=== PATIENT | male | born 1960 | race Caucasian/White ===

== ENCOUNTER 2020-11-06 12:09 | Emergency (ER) | payer OTHER ==
--- NOTE | 2020-11-06 12:54 | RAD REPORT ---
EXAM DESCRIPTION: RAD - Chest Single View - 11/06/2020 12:46 pm CLINICAL HISTORY: COUGH Chest pain. COMPARISON: No comparisons FINDINGS: Portable technique limits examination quality. The lungs are grossly clear. The heart is normal in size. No displaced fractures. IMPRESSION: No acute intrathoracic process suspected.
[2020-11-06 14:06] LABS: SARS-COV-2 RT PCR POSITIVE (NEGATIVE)
--- NOTE | 2020-11-06 14:06 | ER ---
Nurse's Notes [facility] Name: Simone Mcintyre Age: 60 yrs Sex: Male : 1960 Arrival Date: 11/06/2020 Time: 12:15 Bed 4 Private MD: Diagnosis: Coronavirus infection, unspecified Presentation: 11/06 12:30 Chief complaint: Patient states: Cough, fever, SOB with exertion for 5 days. Subjective ll1 fever. Coronavirus screen: Client denies travel out of the [place] in the last 14 days. cough unrelated to allergies, fever, shortness of breath, Client presents with at least one sign or symptom that may indicate coronavirus-19. Standard/surgical mask placed on the client. Ebola Screen: Patient denies travel to an Ebola-affected area in the 21 days before illness onset. Initial Sepsis Screen: Does the patient meet any 2 criteria? No. Patient's initial sepsis screen is negative. Does the patient have a suspected source of infection? Yes: Productive cough/pneumonia. Risk Assessment: Do you want to hurt yourself or someone else? Patient reports no desire to harm self or others. Onset of symptoms was November 02, 2020. 12:30 Method Of Arrival: Ambulatory ll1 12:30 Acuity: CELINE 3 ll1 Historical: - Allergies: 12:30 No Known Allergies; ll1 - PMHx: 12:30 Hypertension; ll1 - PSHx: 12:30 None; ll1 - Immunization history:: Flu vaccine is not up to date. - Social history:: Smoking status: Patient denies any tobacco usage or history of. Screenin:34 Abuse screen: Denies threats or abuse. Denies injuries from another. Nutritional sv screening: No deficits noted. Tuberculosis screening: No symptoms or risk factors identified. Fall Risk None identified. Assessment: 12:45 General: Appears in no apparent distress. comfortable, well developed, Behavior is sv calm, cooperative, appropriate for age. General: Reports fever. Pain: Denies pain. Neuro: Level of Consciousness is awake, alert, obeys commands, Oriented to person, place, time, situation, Moves all extremities. Full function Gait is steady, Speech is normal. Respiratory: Reports cough that is persistent Airway is patent Respiratory effort is even, unlabored, Respiratory pattern is regular, symmetrical. Respiratory: Reports shortness of breath. Derm: Skin is pink, warm \\T\\ dry. Musculoskeletal: Range of motion: intact in all extremities. 14:14 Reassessment: Patient appears in no apparent distress at this time. No changes from sv previously documented assessment. Patient and/or family updated on plan of care and expected duration. Pain level reassessed. Patient is alert, oriented x 3, equal unlabored respirations, skin warm/dry/pink. Vital Signs: 12:30 BP 167 / 92; Pulse 89; Resp 17; Temp 99.1; Pulse Ox 96% on R/A; Weight 79.38 kg; Height ll1 5 ft. 6 in. (167.64 cm); Pain 0/10; 12:30 Body Mass Index 28.25 (79.38 kg, 167.64 cm) ll1 ED Course: 12:15 Patient arrived in ED. mr 12:29 Arm band placed on. ll1 12:33 Triage completed. ll1 12:34 Mirna Baker, RN is Primary Nurse. sv 12:34 Patient has correct armband on for positive identification. Bed in low position. Call sv light in reach. Door closed. Head of bed elevated. 12:35 [facility] Sant[facility]C [facility]. kb 12:35 James Elena MD is Attending Physician. kb 12:40 Chest Single View XRAY Sent. sv 12:40 X-ray(s) taken. sv 12:45 Chest Single View XRAY In Process Unspecified. EDMS 12:50 COVID swab sent to lab. Flu and/or RSV swab sent to lab. sv 12:53 COVID-19 : Document "Date of Symptom Onset" if Symptomatic. Sent. sv 12:54 Flu Sent. sv 13:09 Awaiting lab results. sv 14:14 No provider procedures requiring assistance completed. Patient did not have IV access sv during this emergency room visit. Administered Medications: No medications were administered Outcome: 14:06 Discharge ordered by . kb 14:14 Patient left the ED. sv 14:14 Discharged to home ambulatory. sv 14:14 Condition: stable 14:14 Discharge instructions given to patient, Instructed on discharge instructions, follow up and referral plans. Demonstrated understanding of instructions, follow-up care. Signatures: Dispatcher [employer] EDMS Dione Santana FNP-C ASSISTANT [employer]ER-Mirna Sen, RN RN sv Trae, Chrissy mr Kishore, Rissa, RN RN ll1
--- NOTE | 2020-11-06 14:07 | EDPHYS ---
Physician Documentation [facility] Name: Simone Mcintyre Age: 60 yrs Sex: Male : 1960 Arrival Date: 11/06/2020 Time: 12:15 Bed 4 Private MD: ED Physician James Elena HPI: 11/06 13:29 This 60 yrs old Male presents to ER via Ambulatory with complaints of Cough, kb Fever. 13:29 The patient or guardian reports cough, that is intermittent, described as mild, with no kb sputum, difficulty breathing, flu symptoms, low-grade fever, myalgias. Onset: The symptoms/episode began/occurred 5 day(s) ago. Severity of symptoms: At their worst the symptoms were mild, in the emergency department the symptoms are unchanged. Modifying factors: The symptoms are alleviated by nothing, the symptoms are aggravated by nothing. Associated signs and symptoms: Pertinent positives: fever, rhinorrhea. The patient has not experienced similar symptoms in the past. The patient has not recently seen a physician. Pt reports cough and fever for 5 days. States he had shortness of breath after climbing stairs at work. Started feeling better yesterday, but woke up with the cough again. . Historical: - Allergies: 12:30 No Known Allergies; ll1 - PMHx: 12:30 Hypertension; ll1 - PSHx: 12:30 None; ll1 - Immunization history:: Flu vaccine is not up to date. - Social history:: Smoking status: Patient denies any tobacco usage or history of. ROS: 13:28 Cardiovascular: Negative for chest pain, palpitations, and edema, Abdomen/GI: Negative kb for abdominal pain, nausea, vomiting, diarrhea, and constipation, MS/Extremity: Negative for injury and deformity, Skin: Negative for injury, rash, and discoloration, Neuro: Negative for headache, weakness, numbness, tingling, and seizure. 13:28 Constitutional: Positive for fatigue, fever, malaise. 13:28 Respiratory: Positive for cough, dyspnea on exertion, Negative for hemoptysis, orthopnea, pleurisy, shortness of breath, sputum production, wheezing. Exam: 13:29 Constitutional: This is a well developed, well nourished patient who is awake, alert, kb and in no acute distress. Head/Face: Normocephalic, atraumatic. Chest/axilla: Normal chest wall appearance and motion. Nontender with no deformity. No lesions are appreciated. Cardiovascular: Regular rate and rhythm with a normal S1 and S2. No gallops, murmurs, or rubs. Normal PMI, no JVD. No pulse deficits. Respiratory: Lungs have equal breath sounds bilaterally, clear to auscultation and percussion. No rales, rhonchi or wheezes noted. No increased work of breathing, no retractions or nasal flaring. Abdomen/GI: Soft, non-tender, with normal bowel sounds. No distension or tympany. No guarding or rebound. No evidence of tenderness throughout. Skin: Warm, dry with normal turgor. Normal color with no rashes, no lesions, and no evidence of cellulitis. MS/ Extremity: Pulses equal, no cyanosis. Neurovascular intact. Full, normal range of motion. Neuro: Awake and alert, GCS 15, oriented to person, place, time, and situation. Cranial nerves II-XII grossly intact. Motor strength 5/5 in all extremities. Sensory grossly intact. Cerebellar exam normal. Normal gait. Vital Signs: 12:30 BP 167 / 92; Pulse 89; Resp 17; Temp 99.1; Pulse Ox 96% on R/A; Weight 79.38 kg; Height ll1 5 ft. 6 in. (167.64 cm); Pain 0/10; 12:30 Body Mass Index 28.25 (79.38 kg, 167.64 cm) ll1 MDM: 12:35 Patient medically screened. 13:29 Data reviewed: vital signs, nurses notes. Data interpreted: Pulse oximetry: on room air kb is 96 %. Interpretation: normal. 14:06 Counseling: I had a detailed discussion with the patient and/or guardian regarding: the kb historical points, exam findings, and any diagnostic results supporting the discharge/admit diagnosis, lab results, radiology results, the need for outpatient follow up, a family practitioner, to return to the emergency department if symptoms worsen or persist or if there are any questions or concerns that arise at home. 11/06 12:36 Order name: Flu kb 11/06 12:39 Order name: COVID-19 : Document "Date of Symptom Onset" if Symptomatic. sv 11/06 14:06 Order name: COVID-19/FLU A+B; Complete Time: 14:08 EDDC 11/06 12:36 Order name: Chest Single View XRAY; Complete Time: 12:57 kb Administered Medications: No medications were administered Disposition: 11/06/20 14:06 Discharged to Home. Impression: Coronavirus infection, unspecified. - Condition is Stable. - Discharge Instructions: Viral Respiratory Infection, [id number], COVID-19. - Medication Reconciliation Form, Thank You Letter, Antibiotic Education, Prescription Opioid Use form. - Follow up: Emergency Department; When: As needed; Reason: Worsening of condition. Follow up: Private Physician; When: 2 - 3 days; Reason: Recheck today's complaints, Continuance of care, Re-evaluation by your physician. Addendum: 11/07/2020 14:45 Co-signature as Attending Physician, James Elena MD I agree with the assessment and c yusuf plan of care. Signatures: Dispatcher [employer] [facility] Dione Santana, ALEXYS-Thania BARAJASP-iMrna Sen RN RN James Cedneo MD MD cha Lewis, Lynsay, RN RN ll1 Corrections: (The following items were deleted from the chart) 11/06 13:21 12:40 CORONAVIRUS ordered. [facility] 13:22 12:36 Influenza Screen (A ordered. [facility] 14:14 14:06 11/06/2020 14:06 Discharged to Home. Impression: Coronavirus infection, sv unspecified. Condition is Stable. Forms are Medication Reconciliation Form, Thank You Letter, Antibiotic Education, Prescription Opioid Use. Follow up: Emergency Department; When: As needed; Reason: Worsening of condition. Follow up: Private Physician; When: 2 - 3 days; Reason: Recheck today's complaints, Continuance of care, Re-evaluation by your physician. kb
[2020-11-06 14:28] VITALS: BP 167/92; TEMP 99.1; O2SAT 96
== END 2020-11-06 14:14 | disposition home or self-care (01) ==
LOC: ER 12:09
DX: U07.1 COVID-19 (principal); I10 Essential (primary) hypertension
CPT/HCPCS: 0240U; 71045; 99283